=== PATIENT | female | born 1960 | race Hispanic/Latino ===

== ENCOUNTER 2025-07-06 21:55 | Emergency (ER) | payer BC, OTHER ==
[~2025-07-06] VITALS: Ht 167.6 cm; Wt 91.2 kg
[2025-07-06 21:58] VITALS: BP 113/59; PULSE 69; RESP 20; TEMP 97.9
[2025-07-06] MEDS: FAMOTIDINE 20MG TAB PO ONE (22:23)
[2025-07-06] MEDS ORDERED: DIPH50CA38 PO (22:39)
[2025-07-06] MEDS ORDERED: CEPH500B PO (22:39)
[2025-07-06] MEDS ORDERED: FAMO-136 PO (22:39)
--- NOTE | 2025-07-06 22:39 | ERN ---
ED Note History of Present Illness Stated Complaint: C/O BEE STING TO LEFT UPPER ARM Chief Complaint: Allergic Reaction Time Seen by MD: 21:59 Time Seen by Midlevel: 21:59 Dictation: The patient is a 65-year-old female with a history of diabetes who presents to the emergency department with complaints of bee sting to her left upper arm onset Friday. Patient reports she did not remove the stinger until Friday. Patient reports concerned for increased redness to the area. Denies any fevers. Allergies: Coded Allergies: No Known Allergies (Unverified Allergy, Unknown, 07/06/25) Past Medical History Past Medical History: Diabetes-Type II, High Cholesterol Surgical History: RN Note Reviewed/Agreed w/PFSH: Yes Review of System Dictation Constitutional: Negative for fever,chills, and weight loss Eyes: Negative for injury, pain,redness, and discharge ENT: Negative for injury,pain or swelling Cardiovascular: Negative for chest pain, palpitations, and edema Respiratory: Negative for shortness of breath, cough, and wheezing, Abdomen/GI: Negative for abdominal pain, nausea, vomiting, diarrhea, and constipation Back: Negative for injury and pain : Negative for injury, bleeding and discharge MS/Extremity: Negative for injury and deformity Skin: Negative for rash, and discoloration positive for erythema to left arm Neuro: Negative for headache, weakness, numbness, tingling, and seizure Psych: Negative for suicide ideation, homicidal ideation, and hallucinations Initial Vital Sign VS Vital Signs Date Time Temp Pulse Resp B/P (MAP) Pulse Ox O2 Delivery O2 Flow Rate FiO2 07/06/25 21:58 97.9 69 20 113/59 96 Room Air Physical Exam Dictation Vital Signs reviewed General Appearance: Alert, oriented x 3, no acute distress, well developed, nourished. Head and Face: non-traumatic. Eyes: PERRL, pink conjunctivas, eyelid no trauma, anterior chamber with arcus senilis. Ears: Pinnas intact and no signs of trauma or erythema ear canals clear and no discharge TM no erythema Nose: No discharge, no bleeding. Oropharynx: Mouth normal, tongue pink. pharynx clear,no erythema, tonsils no exudates, no abscesses noted, mucous membrane moist Neck: Supple, non-tender, no thyromegaly, no masses, no JVD, no bruits Breast:Deferred Chest:No tenderness, no crepitus, no paradoxical movement, no retractions Lungs:Clear, well-ventilated, symmetric, no rales, no wheezing, no rhonchi, no stridor, good breath sounds bilaterally Heart: Regular rate, regular rhythm, no murmur, no gallops Vascular: no peripheral edema, Abdomen: Soft, positive bowel sounds, nondistended, no guarding, nontender, no rebound, no masses no hepatomegaly, no splenomegaly, no Gibbons's sign, no hernias. Rectal: Deferred Genital: Deferred Neurological: Normal speech, motor function intact, sensory function intact Musculoskeletal: Neck nontender, full range of motion, back nontender, full range of motion, Extremities: nontender, full range of motion Skin: Color pink, dry, no turgor, no rash, no lacerations, no abrasions, no contusions. Erythema and warmth about 6cm in diameter Lymphatic: Deferred Results (Laboratory/Radiology) Labs Reviewed?: Yes ED Course ED Course Orders Procedure Category Date Status Time Famotidine 20mg Tab PHA 07/06/25 Complete (Pepcid 20mg Tab) 22:30 Methylprednisolone PHA 07/06/25 Complete Succ 125mg (Solu-Medr 22:30 Diphenhydramine Hcl PHA 07/06/25 Complete (Benadryl Cap) 22:30 Current Medications Medications (Trade) Dose Ordered Sig/Hernesto Route PRN Reason Start Time Stop Time Status Last Admin Dose Admin Diphenhydramine HCl (BENAdryl CAP) 25 mg ONCE ONCE PO 07/06/25 22:30 07/06/25 22:31 DC 07/06/25 22:23 Famotidine (Pepcid 20mg Tab) 20 mg ONCE ONCE PO 07/06/25 22:30 07/06/25 22:31 DC 07/06/25 22:23 Methylprednisolone Sodium Succinate (Solu-medROL 125MG) 125 mg ONCE ONCE IM 07/06/25 22:30 07/06/25 22:31 DC 07/06/25 22:23 Vital Signs Date Time Temp Pulse Resp B/P (MAP) Pulse Ox O2 Delivery O2 Flow Rate FiO2 07/06/25 21:58 97.9 69 20 113/59 96 Room Air Medical Decision Making MDM The patient is a 65-year-old female with a history of diabetes who presents to the emergency department with complaints of bee sting to her left upper arm onset Friday. Patient reports she did not remove the stinger until Friday. Patient reports concerned for increased redness to the area. Denies any fevers. Patient with redness and warmth to left upper arm. Could be related to allergic reaction with the patient reports it is getting worse so we will treat patient with antibiotics. Patient however in no acute distress, clear lung sounds, nontoxic appearance, stable vital signs. Patient will be discharged to follow up with PCP. Differential diagnosis: Allergic reaction, bee sting, cellulitis Need for hospitalization: Patient does not meet criteria for hospitalization. There are no social concerns with this patient. DX & DISP Disposition: Discharge Departure Impression: Primary Impression: Bee sting Additional Impression: Infected insect bite Condition: Stable Scripts Cephalexin Monohydrate (Keflex) 500 Mg Cap 500 MG PO QID for 7 Days, #28 CAP Prov: [facility] 07/06/25 Diphenhydramine HCl (Benadryl) 50 Mg Cap 50 MG PO Q6H for itching/rash, #20 CAP 0 Refills Prov: [facility] 07/06/25 Famotidine (Pepcid) 20 Mg Tablet 1 TAB PO BID for 7 Days, #60 TAB 0 Refills Prov: [facility] 07/06/25 Additional Instructions: Please take medications as prescribed. Follow up with the primary doctor in 1-2 days. If symptoms worsen please return to ER. FOLLOW-UP WITH PRIMARY CARE PROVIDER IN 1 TO 2 DAYS. TAKE MEDICATIONS DIRECTED HERE IN THE EMERGENCY ROOM. OKAY TO CONTINUE HOME MEDICATIONS UNLESS OTHERWISE DISCUSSED DURING YOUR VISIT IN THE EMERGENCY ROOM TODAY. RETURN TO YOUR NEAREST EMERGENCY ROOM IF SYMPTOMS WORSEN OR IF THERE IS NO IMPROVEMENT. CALL 911 IF YOU NEED IMMEDIATE ASSISTANCE. TAKE TYLENOL [id number] NEEDED AND IF NO CONTRAINDICATIONS ARE PRESENT. INCREASE ORAL HYDRATION. A WOUND CULTURE OR URINE CULTURE WAS ORDERED HERE IN THE EMERGENCY ROOM DEPARTMENT PLEASE FOLLOW-UP WITH PRIMARY CARE PROVIDER AND ADVISE THEM TO GET REPEAT PORTS FROM OUR FACILITY. IF YOU HAD ANY ARY WRAP/SPLINTS THAT WERE APPLIED HERE, PLEASE DO NOT REMOVE THEM UNTIL YOU SEE YOUR PRIMARY CARE OR SPECIALTY. Referrals: WILY BEE MD (PCP) Time of Disposition: 22:38 I have reviewed the case, and I agree with, Diagnosis and Plan [facility] Jul 06, 2025 22:39
== END 2025-07-06 22:44 | disposition home or self-care (01) ==
LOC: EDH 21:55
DX: T63.441A Toxic effect of venom of bees, accidental (unintentional), initial encounter (principal); L08.9 Local infection of the skin and subcutaneous tissue, unspecified; E11.9 Type 2 diabetes mellitus without complications; E78.00 Pure hypercholesterolemia, unspecified; Z98.890 Other specified postprocedural states; Y92.89 Other specified places as the place of occurrence of the external cause
CPT/HCPCS: 99284; 96372; Q0163; J2919